=== PATIENT | male | born 1995 | race Caucasian/White ===

== ENCOUNTER → 2020-05-30 14:36 | Outpatient (BNVA) | payer OTHER, SELFPAY | PROVIDERS: Visit Provider Nurse Practitioner Family | DX: Z11.59 Encounter for screening for other viral diseases (principal) | CPT/HCPCS: 87635 ==

== ENCOUNTER 2024-08-26 14:44 | Outpatient (CLI) | payer MEDICAID, SELFPAY ==
--- NOTE | 2024-08-26 14:46 | XR_ITS ---
WS: [id number] KUB, AP view, 08/26/2024 Clinical Data: ABD PAIN Comparison: None. Findings: No abnormal intraabdominal masses or calcifications are seen. There is no dilatated small bowel or ev idence of obstruction. There is minimal fecal material in the ascending colon. XR/XR KUB [id number] Impression: Negative KUB.
== END 2024-08-26 14:45 | disposition home or self-care (01) ==
LOC: RAD 14:46
DX: R10.9 Unspecified abdominal pain (principal)
CPT/HCPCS: 74018

== ENCOUNTER → 2024-09-07 10:43 | Outpatient (BNVA) | payer MEDICAID, SELFPAY | PROVIDERS: Visit Provider Registered Nurse Neonatal Intensive Care | DX: M25.532 Pain in left wrist (principal) | CPT/HCPCS: 73110 ==